=== PATIENT | male | born 1935 | race Caucasian/White ===

== ENCOUNTER 2022-11-19 06:51 | Emergency (ER) | payer MEDICARE ==
[~2022-11-19] VITALS: Ht 167.6 cm; Wt 59.0 kg
[~2022-11-19 06:51] MED LIST: [UNRECOGNIZED DRUG - OTHER]
[2022-11-19] MEDS ORDERED: normal saline 1000ML IV soln IVB ONE (07:55)
[2022-11-19] MEDS ORDERED: ondansetron/PF 4mg/2ml inj IV ONE (07:55)
[2022-11-19] MEDS ORDERED: morphine 4 MG/ML inj SYRINge IV PRN (07:55)
[2022-11-19] MEDS ORDERED: iohexol 300mg/ml 100ml inj. ONE (08:17)
[2022-11-19 08:28] LABS: BASOPHILS % (AUTO) 0.8 % (0-1); EOSINOPHILS # (AUTO) 0.1 X10'3 (0-0.9); EOSINOPHILS % (AUTO) 1.6 % (0-6); HEMATOCRIT 36.9 % (42.0-52.0); HEMOGLOBIN 12.5 g/dl (14.0-17.9); LYMPHOCYTES % (AUTO) 18.3 % (21-51); MEAN CORPUSCULAR HEMOGLOBIN 29.8 PG (27.0-31.0); MEAN CORPUSCULAR HGB CONC 33.9 g/dL (33.0-36.5); MEAN CORPUSCULAR VOLUME 87.7 FL (78-98); MEAN PLATELET VOLUME 9.5 FL (7.4-10.4); MONOCYTES # (AUTO) 0.5 X10'3 (0-0.9); MONOCYTES % (AUTO) 9.2 % (2-12); NEUTROPHILS % (AUTO) 70.1 % (42-75); PLATELET COUNT 199 X10'3 (140-440); RED BLOOD COUNT 4.21 X10'6 (4.70-6.10); RED CELL DISTRIBUTION WIDTH 13.7 % (11.5-14.5); WHITE BLOOD COUNT 5.7 X10'3 (4.5-11.0)
[2022-11-19 08:51] LABS: ALANINE AMINOTRANSFERASE 17 U/L (12-78); ALBUMIN 3.4 G/DL (3.4-5.0); ALBUMIN/GLOBULIN RATIO 1.2 (1.1-1.5); ALKALINE PHOSPHATASE 86 IU/L (46-116); ANION GAP 10 (8-16); ASPARTATE AMINO TRANSFERASE 21 U/L (10-37); BILIRUBIN,TOTAL 0.5 MG/DL (0.1-1.0); BLOOD UREA NITROGEN 26 MG/DL (7-18); CALCIUM 8.8 MG/DL (8.5-10.1); CHLORIDE 105 MMOL/L (99-107); CREATININE 1.37 MG/DL (0.60-1.10); GLUCOSE 89 MG/DL (70-104); POTASSIUM 4.5 MMOL/L (3.5-5.1); SODIUM 140 MMOL/L (135-145); TOTAL PROTEIN 6.3 G/DL (6.4-8.2); eGFR 49 ML/MIN
[2022-11-19 10:02] LABS: CLARITY,URINE CLEAR (Clear); COLOR,URINE YELLOW (Yellow); GLUCOSE, URINE NEGATIVE (Neg); KETONES,URINE NEGATIVE (Neg); LEUKOCYTE ESTERASE ,URINE NEGATIVE (Neg); NITRITES, URINE NEGATIVE (Neg); OCCULT BLOOD,URINE NEGATIVE (Neg); PH,URINE 5.5 (4.8-8.0); PROTEIN,URINE NEGATIVE (Neg); UROBILINOGEN,URINE 0.2 E.U/dL (0.2-1.0)
[2022-11-19 10:05] LABS: UA COLLECTION TYPE VOIDED
[2022-11-19] MEDS ORDERED: CLIN-97 PO (11:25)
[2022-11-19 11:26] VITALS: BP 115/84
== END 2022-11-19 11:33 | disposition home or self-care (01) ==
LOC: ER 06:52
DX: K61.0 Anal abscess (principal); Z88.0 Allergy status to penicillin; Z79.899 Other long term (current) drug therapy
CPT/HCPCS: 36415; 74177; 80053; 81003; 85025; 96361; 96374; 96375; 99285; J2270; J2405; J3490; J7030; Q9967

== ENCOUNTER 2023-04-03 08:12 | Inpatient (IN) | payer MEDICARE ==
[~2023-04-03] VITALS: Ht 182.9 cm; Wt 64.0 kg
[~2023-04-03 08:12] MED LIST changes: +CLIN-97 PO
[2023-04-03] MEDS ORDERED: normal saline 1000ML IV soln IVB ONE (09:00)
[2023-04-03 09:24] LABS: BASOPHILS % (AUTO) 0.5 % (0-1); EOSINOPHILS % (AUTO) 0 % (0-6); HEMATOCRIT 36.5 % (42.0-52.0); LYMPHOCYTES # (AUTO) 0.3 X10'3 (1.1-4.8); LYMPHOCYTES % (AUTO) 9.9 % (21-51); MEAN CORPUSCULAR HGB CONC 32.8 g/dL (33.0-36.5); MEAN CORPUSCULAR VOLUME 88.4 FL (78-98); MEAN PLATELET VOLUME 9.2 FL (7.4-10.4); MONOCYTES # (AUTO) 0.4 X10'3 (0-0.9); NEUTROPHILS # (AUTO) 2.6 X10'3 (1.8-7.7); NEUTROPHILS % (AUTO) 76.6 % (42-75); PLATELET COUNT 137 X10'3 (140-440); RED BLOOD COUNT 4.13 X10'6 (4.70-6.10); RED CELL DISTRIBUTION WIDTH 14.2 % (11.5-14.5); WHITE BLOOD COUNT 3.4 X10'3 (4.5-11.0)
[2023-04-03 09:39] LABS: ALANINE AMINOTRANSFERASE 9 U/L (12-78); ALBUMIN 3.3 G/DL (3.4-5.0); ALBUMIN/GLOBULIN RATIO 1.2 (1.1-1.5); ALKALINE PHOSPHATASE 74 IU/L (46-116); ANION GAP 5 (8-16); ASPARTATE AMINO TRANSFERASE 23 U/L (10-37); BILIRUBIN,TOTAL 0.3 MG/DL (0.1-1.0); BLOOD UREA NITROGEN 27 MG/DL (7-18); BUN/CREATININE RATIO 16.6 (10.0-20.0); CALCIUM 8.2 MG/DL (8.5-10.1); CHLORIDE 102 MMOL/L (99-107); CREATININE 1.63 MG/DL (0.60-1.10); GLUCOSE 90 MG/DL (70-104); MAGNESIUM 2.1 MG/DL (1.5-2.4); POTASSIUM 4.5 MMOL/L (3.5-5.1); SODIUM 133 MMOL/L (135-145); TOTAL CARBON DIOXIDE 25.6 MMOL/L (24-32); eCRCL 29 ML/MIN; eGFR 40 ML/MIN
[2023-04-03] MEDS ORDERED: magnesium Cl slow-release 64mg tablet PO PRN (10:10)
[2023-04-03] MEDS ORDERED: potassium Cl 40MEQ/1/2NS 520ml 520 ML IV PRN (10:10)
[2023-04-03] MEDS ORDERED: acetaminophen 325mg tablet PO PRN ×2 (10:10)
[2023-04-03] MEDS ORDERED: potassium Cl 20 mEq SR tablet PO PRN ×2 (10:10)
[2023-04-03] MEDS ORDERED: ondansetron/PF 4mg/2ml inj IV PRN (10:10)
[2023-04-03] MEDS ORDERED: magnesium hydroxide 30ml (MOM) UD suspension PO PRN (10:10)
[2023-04-03] MEDS ORDERED: morphine 2 MG/ML inj. syringe IV PRN ×2 (10:10)
[2023-04-03] MEDS ORDERED: HYDROcodone/acetaminophen 10/325mg tab PO PRN (10:10)
[2023-04-03] MEDS ORDERED: magnesium 4gm in 100ml NS 100 ML IV PRN (10:10)
[2023-04-03] MEDS ORDERED: magnesium 2GM in 50ml NS 50 ML IV PRN (10:10)
[2023-04-03] MEDS ORDERED: mag hydrox/Alum hydrox/simeth 30ml oral suspension PO PRN (10:10)
[2023-04-03] MEDS ORDERED: HYDROcodone/acetaminophen 5mg/325mg tablet PO PRN (10:10)
[2023-04-03 10:11] LABS: BILIRUBIN,URINE NEGATIVE (Neg); CLARITY,URINE SLIGHTLY CLOUDY (Clear); COLOR,URINE YELLOW (Yellow); GLUCOSE, URINE NEGATIVE (Neg); KETONES,URINE NEGATIVE (Neg); LEUKOCYTE ESTERASE ,URINE NEGATIVE (Neg); NITRITES, URINE NEGATIVE (Neg); OCCULT BLOOD,URINE SMALL (Neg); PH,URINE 5.5 (4.8-8.0); PROTEIN,URINE 30 mg/dl (Neg); UROBILINOGEN,URINE 0.2 E.U/dL (0.2-1.0)
[2023-04-03 10:17] LABS: SQUAMOUS EPITHELIAL CELL,UR FEW /LPF (FEW); UA COLLECTION TYPE VOIDED
[2023-04-03 10:18] LABS: BACTERIA,URINE FEW /HPF (Neg); FINE GRANULAR CAST 0-3 /LPF (NEGATIVE); HYALINE CASTS 0-3 /LPF (NEGATIVE); MUCUS STRANDS FEW /LPF (Neg); WBC,URINE 0-4 /HPF (0-4)
[2023-04-03] MEDS ORDERED: CefTRIAXone/D5W-Rocephin 1gm 50 ML IV SCH (13:05)
[2023-04-03] MEDS: normal saline 1000ml 1,000 ML IV SCH (13:05)
[2023-04-03] MEDS ORDERED: OLANZapine **IM** 10 mg inj. IM ONE (19:30)
[2023-04-03] MEDS ORDERED: K and/or MAG REPLACEMENT MC SCH (20:00)
[2023-04-03] MEDS ORDERED: heparin, porcine 5000 units/ml vial SQ SCH (20:00)
[2023-04-03] MEDS: docusate sod 100mg capsule PO SCH (20:00)
[2023-04-03] MEDS ORDERED: ziprasidone IM 20mg inj **IM only IM STA (20:45)
[2023-04-03 23:45] VITALS: RESP 16; O2SAT 90
[2023-04-03 23:50] VITALS: BP 186/81; PULSE 68; RESP 17; TEMP 98; O2SAT 90
[2023-04-04 01:10] VITALS: BP 137/85; PULSE 67
[2023-04-04] MEDS: normal saline 1000ml 1,000 ML IV SCH (01:31)
[2023-04-04 07:09] VITALS: BP 138/78; PULSE 78; RESP 20; TEMP 98.8; O2SAT 92
[2023-04-04] MEDS: docusate sod 100mg capsule PO SCH (08:00)
[2023-04-04 10:00] VITALS: BP 153/83; PULSE 76; RESP 18; TEMP 97.6; O2SAT 97
== END 2023-04-04 11:25 | disposition home health service (06) | DRG 177 ==
LOC: ER 08:13 → UNDOADMIN 10:10 → ED HOLD 10:10 → EDBEDREQ 22:56 → ORTHO 4S 23:30 → ED HOLD 23:30 → UNDODISIN 04-04 11:25
PROVIDERS: ADMIT Internal Medicine; ATTEND Internal Medicine
DX: U07.1 COVID-19 (principal); G93.41 Metabolic encephalopathy; N17.9 Acute kidney failure, unspecified; N39.0 Urinary tract infection, site not specified; Z79.899 Other long term (current) drug therapy; Z88.0 Allergy status to penicillin
CPT/HCPCS: 36415; 70450; 71045; 74176; 80053; 81001; 83605; 83735; 84100; 84132; 84145; 85025; 87040; 87081; 87811; 96360; 99285; A6212; A6223; A6258; A6446; G0378; J0696; J1644; J3486; J3490; J7030